=== PATIENT | female | born 1960 | race Two or more races ===

== ENCOUNTER 2016-08-06 13:45 | Emergency (ER) | payer SELFPAY ==
[~2016-08-06] VITALS: Ht 165.1 cm; Wt 82.0 kg
[2016-08-06] MEDS ORDERED: ACETAMINOPHEN 500MG TABLET PO ONE (15:30)
[2016-08-06 18:00] VITALS: BP 116/68
== END 2016-08-06 18:00 | disposition home or self-care (01) ==
LOC: ER 14:46
DX: S46.811A Strain of other muscles, fascia and tendons at shoulder and upper arm level, right arm, initial encounter (principal); S00.93XA Contusion of unspecified part of head, initial encounter; S80.211A Abrasion, right knee, initial encounter; Y08.89XA Assault by other specified means, initial encounter; Y93.89 Activity, other specified; Y92.89 Other specified places as the place of occurrence of the external cause; Y99.8 Other external cause status; Z87.891 Personal history of nicotine dependence
CPT/HCPCS: 70450; 73030; 73521; 99284; Z7610